=== PATIENT | male | born 1950 | race Caucasian/White ===

== ENCOUNTER 2020-04-25 12:28 | Outpatient (CLI) | payer MEDICARE, SELFPAY ==
--- NOTE | 2020-04-25 15:00 | NEURO_ITS ---
Patient Number: [id number] Impression: # Complains of numbness of both hands, right more than left. # Severe right Carpal Tunnel Syndrome. # Mild left Carpal Tunnel Syndrome. # No ulnar neuropathy. # Abnormal needle/EMG exam in right Abd Poll Brevis. Nerve Conduction Studies Anti Sensory Summary Table Stim Site NR Peak (ms) P-T Amp (?V) Site1 Site2 Delta-P (ms) Dist (cm) Lakhwinder (m/s) Left Median Anti Sensory (2-3nd Digit) Wrist 4.5 23.5 Wrist 2-3nd Digit 4.5 14.0 31 Wrist 4.3 16.8 Wrist 2-3nd Digit 4.5 14.0 31 Right Median Anti Sensory (2-3nd Digit) Wrist 12.1 7.3 Wrist 2-3nd Digit 12.1 14.0 12 Wrist 9.4 13.0 Wrist 2-3nd Digit 12.1 14.0 12 Left Radial Anti Sensory (Base 1st Digit) Wrist 2.4 8.6 Wrist Base 1st Digit 2.4 0.0 Right Radial Anti Sensory (Base 1st Digit) Wrist 3.3 10.9 Wrist Base 1st Digit 3.3 0.0 Left Ulnar Anti Sensory (5th Digit) Wrist 3.1 21.1 Wrist 5th Digit 3.1 14.0 45 Right Ulnar Anti Sensory (5th Digit) Wrist 2.7 30.0 Wrist 5th Digit 2.7 14.0 52 Motor Summary Table Stim Site NR Onset (ms) O-P Amp (mV) Site1 Site2 Delta-0 (ms) Dist (cm) Lakhwinder (m/s) Left Median Motor (Abd Poll Brev) Wrist 4.1 2.8 Elbow Wrist 6.2 34.0 55 Elbow 10.3 1.0 Right Median Motor (Abd Poll Brev) Wrist 10.6 1.1 Elbow Wrist 5.9 31.0 53 Elbow 16.5 0.8 Left Ulnar Motor (Abd Dig Minimi) Wrist 2.7 7.2 A Elbow Wrist 5.6 32.0 57 A Elbow 8.3 5.7 Right Ulnar Motor (Abd Dig Minimi) Wrist 2.9 6.8 A Elbow Wrist 6.1 33.0 54 A Elbow 9.0 5.3 F Wave Studies NR F-Lat (ms) L-R F-Lat (ms) Left Median (Mrkrs) (Abd Poll Brev) 32.16 8.71 Right Median (Mrkrs) (Abd Poll Brev) 40.88 8.71 Left Ulnar (Mrkrs) (Abd Dig Min) 32.03 0.78 Right Ulnar (Mrkrs) (Abd Dig Min) 31.25 0.78 EMG Side Muscle Nerve Root Ins Act Fibs Amp Dur Recrt Comment Right 1stDorInt Ulnar C8-T1 Nml Nml Nml Nml Nml Right Ext Indicis Radial (Post Int) C7-8 Nml Nml Nml Nml Nml Right Ext Digitorum Radial (Post Int) C7-8 Nml Nml Nml Nml Nml Right BrachioRad Radial C5-6 Nml Nml Nml Nml Nml Right PronatorTeres Median C6-7 Nml Nml Nml Nml Nml Right Abd Poll Brev Median C8-T1 Nml Nml Nml >12ms Reduced Left 1stDorInt Ulnar C8-T1 Nml Nml Nml Nml Nml Left Ext Indicis Radial (Post Int) C7-8 Nml Nml Nml Nml Nml Left Ext Digitorum Radial (Post Int) C7-8 Nml Nml Nml Nml Nml Left BrachioRad Radial C5-6 Nml Nml Nml Nml Nml Left PronatorTeres Median C6-7 Nml Nml Nml Nml Nml Left Abd Poll Brev Median C8-T1 Nml Nml Nml Nml Nml MTDD
== END 2020-04-25 12:29 | disposition home or self-care (01) ==
PROVIDERS: PCP Family Medicine; Visit Provider Psychiatry & Neurology Neurology
DX: G56.03 Carpal tunnel syndrome, bilateral upper limbs (principal)
CPT/HCPCS: 95886; 95911

== ENCOUNTER 2020-04-29 01:09 | Outpatient (CLI) | payer MEDICARE, SELFPAY ==
[2020-04-29 19:58] LABS: SARS-CoV-2 RNA PCR Negative
== END 2020-04-29 01:10 | disposition home or self-care (01) ==
LOC: ANHCOVIDDT 01:09
PROVIDERS: PCP Family Medicine; Visit Provider Internal Medicine Gastroenterology
DX: Z01.812 Encounter for preprocedural laboratory examination (principal); Z20.828 Contact with and (suspected) exposure to other viral communicable diseases
CPT/HCPCS: 87635; C9803; U0003

== ENCOUNTER → 2020-04-29 11:03 | Outpatient (CLI) | payer MEDICARE, SELFPAY ==
--- NOTE | ~2020-04-29 | XR_ITS ---
EXAMINATION: XR hand BI arthritis min 3V DATE: 04/29/2020 11:15 INDICATION: Unspecified osteoarthritis, unspecified site. TECHNIQUE: 4 views of right hand and 4 views of left hand on a total of 7 radiographs were obtained. COMPARISON: None. FINDINGS: RIGHT HAND: Bone alignment is normal. No fracture. There is mild osteoarthritis of distal radioulnar joint, triscaphe joint, first carpometacarpal joint, second-fifth metacarpophalangeal joints, first i nterphalangeal joint, third and fourth proximal interphalangeal joints, and third-fifth distal interp halangeal joints. There is severe osteoarthritis of second distal interphalangeal joint. There is a l oose body in the dorsum of the radiocarpal joint. LEFT HAND: Bone alignment is normal. There is an old healed fracture deformity of fifth proximal phal anx. There is mild osteoarthritis of triscaphe joint, first carpometacarpal joint, second, and fourth metacarpophalangeal joints, and most of the interphalangeal joints. There is moderate osteoarthritis of fifth proximal interphalangeal joint. IMPRESSION: 1. Polyarticular osteoarthritis. 2. Loose body in right radiocarpal compartment. Reviewed, dictated and finalized at location A. 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
== END ==
PROVIDERS: PCP Family Medicine; Visit Provider Internal Medicine
DX: M19.041 Primary osteoarthritis, right hand (principal); M19.042 Primary osteoarthritis, left hand
CPT/HCPCS: 73130

== ENCOUNTER 2020-05-01 03:18 | Day surgery (SDC) | payer MEDICARE, SELFPAY ==
[2020-04-26 14:03] VITALS: BMI 29.6
[2020-05-01] MEDS: LACTATED RINGERS 1,000 ML 150 ML IV CONT (11:25)
[2020-05-01 11:30] VITALS: BP 152/85; PULSE 79; RESP 20; TEMP 36.2; O2SAT 98; BMI 30.9
[2020-05-01 11:36] LABS: Glucose Point of Care 140 (65-105)
--- NOTE | 2020-05-01 11:43 | WPDANESEPPF ---
Anes - Initial Pre Proc Eval Procedure: Operation Date: 05/01/20 12:45 Proposed Procedures p Screening Colonoscopy - Tadeo Villavicencio MD Date/Time: 05/01/20 11:43 Surgeon: Tadeo Villavicencio MD Pre Op Diagnosis: Neoplasm Screening Patient Data Age: 69 Gender: M Height: 6 ft 1 in Weight: 106.2 kg Last Vital Signs Temp 36.2 C L 05/01/20 11:30 Pulse 79 05/01/20 11:30 Resp 20 05/01/20 11:30 BP 152/85 H 05/01/20 11:30 Pulse Ox 98 05/01/20 11:30 Allergies Allergy/AdvReac Type Severity Reaction Status Date / Time erythromycin base Allergy Mild Hives Verified 05/01/20 11:18 Penicillins Allergy Mild Hives Verified 05/01/20 11:18 Home Medications Medication Instructions Recorded Confirmed Type coenzyme Q10 100 mg capsule 100 mg PO DAILY 06/22/19 04/26/20 History metformin 500 mg tablet 500 mg PO BID 06/22/19 04/26/20 History naproxen sodium 220 mg tablet 220 mg PO BID PRN 06/22/19 04/26/20 History cholecalciferol (vitamin D3) 1,250 50,000 unit PO WEEKLY #4 cap 12/28/19 04/26/20 Rx mcg (50,000 unit) capsule rosuvastatin 10 mg tablet 10 mg PO DAILY #90 tablet 12/28/19 04/26/20 Rx tadalafil 5 mg tablet 5 mg PO DAILY #90 tablet 03/28/20 04/26/20 Rx tamsulosin 0.4 mg capsule 0.4 mg PO DAILY #90 cap 03/28/20 04/26/20 Rx peg 3350-electrolytes 236 240 ml PO Q10M #4000 ml 04/09/20 04/19/20 Rx gram-22.74 gram-6.74 gram-5.86 gram solution sodium,potassium,mag sulfates 17.5 480 ml PO .COMPLEX #177 ml 04/11/20 04/19/20 Rx gram-3.13 gram-1.6 gram oral soln aspirin 81 mg PO DAILY 04/26/20 04/26/20 History Laboratory Tests 05/01/20 11:33 POC Capillary Glucose 140 mg/dl H mg/dl (65-105) Patient hx anesthesia problems: none Family hx anesthesia problems: none PMFSH Past Medical History Medical History Abnormal EKG Alcohol abuse Carpal tunnel syndrome of right wrist (~10/2019) Diabetes 1.5, managed as type 2 HERNANDEZ (dyspnea on exertion) Dyslipidemia Encounter for Hemoccult screening patient gives history that 1 was positive recently Hypersomnia Inflammatory arthritis (~06/2019) PAC (premature atrial contraction) Preop cardiovascular exam Surgical History Surgical History History of hip replacement History of knee surgery History of shoulder surgery Family History Family History Mother Family history of throat cancer Family history of malignant neoplasm, Onset Age: 84 Father Patient's father is , Onset Age: 69 Family history of lung cancer Acute myocardial infarction Family history of malignant neoplasm Social History Social History Smoking status: Never smoker Second hand tobacco smoke exposure: No Alcohol intake: former Drinks per week: 30 Alcohol use details: BEEN CLEAN AND SOBER FOR A YEAR Substance use: never Substance use type: does not use Living arrangements: with family Spiritual care concerns: No Anes - Eval Final PreProcedure Day of Procedure 05/01/20 11:43 Patient weight: obese Heart: regular rate and rhythm Lungs: decreased breath sounds Airway: Mallampati scale class II Neurological: alert and oriented Last oral intake: >/= 8 hours ASA classification: III Emergent: no Anesthetic plan: proceed Anesthesia type and monitoring: general GIVS and standard monitoring Informed Consent: The patient's anesthetic plan and its attendant risks and benefits were discussed with the patient/family/POA. Questions were solicited and answers provided to the satisfaction of the patient/family/POA.
--- NOTE | 2020-05-01 11:45 | PM.HPGS ---
History of Present Illness History of Present Illness Consent: Risks, benefits, and alternatives have been discussed and questions answered. Patient agrees to proceed with procedure. Chief complaint: Neoplasm Screening Narrative: Benigno Kothari is a 69 year old male with FOBT +, denies overt gib, last colonoscopy 20 years ago Review of Systems Constitutional: Constitutional: Denies headache(s) and Denies weakness Eyes: Eyes: Denies blurry vision ENT: Reports Normal hearing present, Denies headache(s) and Denies neck pain Cardiovascular: Cardiovascular: Denies chest pain and Denies dyspnea Respiratory: Respiratory: Denies dyspnea Gastrointestinal: Gastrointestinal: Reports no additional gastrointestinal complaints Genitourinary: Genitourinary: Denies dysuria Musculoskeletal: Musculoskeletal: Denies neck pain Integumentary/Breasts: Skin/Breast: Denies dry skin Neurologic: Reports Normal hearing present, Denies headache(s) and Denies weakness Psychiatric: Psychiatric: Denies anxiety Endocrine: Endocrine: Denies change in body appearance Hematologic/Lymphatic: Hematologic/Lymphatic: Denies easy bleeding Allergic/Immunologic: Allergic/Immunologic: Denies urticaria PMFSH Past Medical History Medical History Abnormal EKG Alcohol abuse Carpal tunnel syndrome of right wrist (~10/2019) Diabetes 1.5, managed as type 2 HERNANDEZ (dyspnea on exertion) Dyslipidemia Encounter for Hemoccult screening patient gives history that 1 was positive recently Hypersomnia Inflammatory arthritis (~06/2019) PAC (premature atrial contraction) Preop cardiovascular exam Surgical History Surgical History History of hip replacement History of knee surgery History of shoulder surgery Family History Family History Mother Family history of throat cancer Family history of malignant neoplasm, Onset Age: 84 Father Patient's father is , Onset Age: 69 Family history of lung cancer Acute myocardial infarction Family history of malignant neoplasm Social History Social History Smoking status: Never smoker Second hand tobacco smoke exposure: No Alcohol intake: former Drinks per week: 30 Alcohol use details: BEEN CLEAN AND SOBER FOR A YEAR Substance use: never Substance use type: does not use Living arrangements: with family Spiritual care concerns: No Meds Home Medications and Allergies Home Medications Medication Instructions Recorded Confirmed Type coenzyme Q10 100 mg capsule 100 mg PO DAILY 06/22/19 04/26/20 History metformin 500 mg tablet 500 mg PO BID 06/22/19 04/26/20 History naproxen sodium 220 mg tablet 220 mg PO BID PRN 06/22/19 04/26/20 History cholecalciferol (vitamin D3) 1,250 50,000 unit PO WEEKLY #4 cap 12/28/19 04/26/20 Rx mcg (50,000 unit) capsule rosuvastatin 10 mg tablet 10 mg PO DAILY #90 tablet 12/28/19 04/26/20 Rx tadalafil 5 mg tablet 5 mg PO DAILY #90 tablet 03/28/20 04/26/20 Rx tamsulosin 0.4 mg capsule 0.4 mg PO DAILY #90 cap 03/28/20 04/26/20 Rx peg 3350-electrolytes 236 240 ml PO Q10M #4000 ml 04/09/20 04/19/20 Rx gram-22.74 gram-6.74 gram-5.86 gram solution sodium,potassium,mag sulfates 17.5 480 ml PO .COMPLEX #177 ml 04/11/20 04/19/20 Rx gram-3.13 gram-1.6 gram oral soln aspirin 81 mg PO DAILY 04/26/20 04/26/20 History Allergies Allergy/AdvReac Type Severity Reaction Status Date / Time erythromycin base Allergy Mild Hives Verified 05/01/20 11:18 Penicillins Allergy Mild Hives Verified 05/01/20 11:18 Vital Signs Vital Signs - 24 hr 05/01/20 11:30 Temperature 97.2 F L Pulse Rate 79 Respiratory Rate 20 Blood Pressure 152/85 H Pulse Oximetry 98 Exam Const: General: comfortable and no acute d
[2020-05-01 12:13] VITALS: BP 111/72; PULSE 67; RESP 16; O2SAT 92
[2020-05-01 12:23] VITALS: BP 117/79; PULSE 63; RESP 15; O2SAT 94
[2020-05-01 12:33] VITALS: BP 126/82; PULSE 65; RESP 30; O2SAT 96
== END 2020-05-01 12:41 | disposition home or self-care (01) ==
PROVIDERS: PCP Family Medicine; Visit Provider Internal Medicine Gastroenterology
PROC: 0DJD8ZZ Inspection of Lower Intestinal Tract, Via Natural or Artificial Opening Endoscopic (ICD-10-PCS; CPT 45378; principal; 2020-05-01 12:45)
DX: R19.5 Other fecal abnormalities (principal); D12.2 Benign neoplasm of ascending colon; D12.3 Benign neoplasm of transverse colon; D12.4 Benign neoplasm of descending colon; K57.30 Diverticulosis of large intestine without perforation or abscess without bleeding; K64.8 Other hemorrhoids; E13.9 Other specified diabetes mellitus without complications; E78.5 Hyperlipidemia, unspecified; I49.1 Atrial premature depolarization; R06.09 Other forms of dyspnea; Z79.84 Long term (current) use of oral hypoglycemic drugs; F10.21 Alcohol dependence, in remission; E66.9 Obesity, unspecified; Z68.30 Body mass index [BMI] 30.0-30.9, adult
CPT/HCPCS: 45385; 88305; J2704; J7120

== ENCOUNTER 2020-06-15 01:54 | Outpatient (CLI) | payer MEDICARE, SELFPAY ==
[2020-06-15 18:59] LABS: SARS-CoV-2 RNA PCR Negative
== END 2020-06-15 01:55 | disposition home or self-care (01) ==
LOC: ANHCOVIDDT 01:54
PROVIDERS: PCP Family Medicine; Visit Provider Plastic Surgery
DX: Z01.812 Encounter for preprocedural laboratory examination (principal); Z20.828 Contact with and (suspected) exposure to other viral communicable diseases
CPT/HCPCS: 87635; C9803; U0003

== ENCOUNTER 2020-06-19 01:07 | Day surgery (SDC) | payer MEDICARE, SELFPAY ==
[2020-05-30 08:12] VITALS: BMI 31.0
--- NOTE | 2020-06-14 08:30 | PC.NURSE ---
NEW DATE AND TIME GIVEN. NO CHANGE IN HEALTH HX. LAST INTERVIEW 05/30/20
--- NOTE | 2020-06-19 07:12 | WPDHPUPDATE1 ---
History and Physical Update Update Date/Time: 06/19/20 07:12 History and Physical has been reviewed, including an updated exam of the patient. There are NO changes in the patient's condition. Risks, benefits, and alternatives have been discussed and questions answered. Patient agrees to proceed with procedure.
[2020-06-19 15:16] VITALS: BP 125/72; PULSE 85; RESP 20; TEMP 37.2; O2SAT 98
[2020-06-19 16:15] VITALS: BP 142/82; PULSE 87; RESP 20; O2SAT 95
[2020-06-19] MEDS: LIDO 1%/EPINEPHRINE 1:100,000 20 ML VIAL INFILTRATE (16:18)
[2020-06-19 16:25] VITALS: BP 142/81; PULSE 77; RESP 20; O2SAT 95
[2020-06-19 16:34] VITALS: BP 135/74; PULSE 77; RESP 20; O2SAT 96
[2020-06-19 16:40] VITALS: BP 126/73; PULSE 78; RESP 16; O2SAT 98
--- NOTE | 2020-06-19 16:56 | PM.OP ---
Procedure Note - Brief Procedure Note - Brief Date of procedure: 06/19/20 Pre-op diagnosis: Right Carpal Tunnel Syndrome Post-op diagnosis: same Procedure performed: R OCTR Anesthesia: local Surgeon: Jose Hart MD Estimated blood loss (mL): 5 Tourniquet time (min): 0 Drains: No Packing: No Pathology: none sent Complications: No immediate complications Condition: stable Disposition: same day
--- NOTE | 2020-06-19 17:26 | PM.PROC ---
Procedure Note - Detailed Date of procedure: 06/19/20 Pre-op diagnosis: Right Carpal Tunnel Syndrome Post-op diagnosis: same Procedure performed: Right open carpal tunnel release Description of procedure: The patient's right upper extremity was marked at the wrist in the holding area. He was taken to the operating room placed supine on the operating table. A time-out was held and confirmed. The extremity was prepped and draped in usual fashion. The site was marked for incision. This area was infiltrated with 1% lidocaine with epinephrine. No tourniquet was used. The incision was made as marked and dissected through the subcutaneous tissue with blunt dissection. The palmar fascia and carpal ligament were incised with a 15. Blade. Under 3 point retraction the ligament was divided distally and proximally for complete release. There was no unusual anatomy noted. The wound was closed with interrupted 4-0 nylon suture. The usual bandage was applied is discharged from the operating room stable condition in stable condition Anesthesia: local Surgeon: Jose Hart MD Estimated blood loss (mL): 4 Tourniquet time (min): 0 Drains: No Packing: No Pathology: none sent Complications: No immediate complications Condition: stable Disposition: same day
== END 2020-06-19 17:04 | disposition home or self-care (01) ==
PROVIDERS: PCP Family Medicine; Visit Provider Plastic Surgery
PROC: (CPT 64721; principal; 2020-06-19 15:30)
DX: G56.01 Carpal tunnel syndrome, right upper limb (principal); Z79.82 Long term (current) use of aspirin; Z79.84 Long term (current) use of oral hypoglycemic drugs
CPT/HCPCS: 64721; A9270

== ENCOUNTER 2021-01-15 10:59 | Outpatient (CLI) | payer MEDICARE, SELFPAY ==
--- NOTE | 2021-01-15 11:30 | ECG_ITS ---
Measurements Intervals [place] Rate: 67 P: 11 IN: 180 QRS: 78 QRSD: 117 T: 29 QT: 413 QTc: 438 Interpretive Statements SINUS RHYTHM INCOMPLETE RIGHT BUNDLE BRANCH BLOCK DELAYED PRECORDIAL R/S TRANSITION BORDERLINE T WAVE ABNORMALITY- INFERIOR LEADS BORDERLINE ECG Electronically Signed On 01-15-2021 11:41:33 CDT by Les Stapleton D.O.
[2021-01-15 11:38] LABS: Anion Gap 8 mmol/L (8-16); Blood Urea Nitrogen 14 mg/dL (9-20); Carbon Dioxide 26 mmol/L (22-30); Chloride 104 mmol/L (98-107); Estimated Glomerular Filt Rate > 60; Glucose 202 mg/dL (65-110); Potassium 4.3 mmol/L (3.4-5.0); Sodium 138 mmol/L (137-145)
== END 2021-01-15 11:00 | disposition home or self-care (01) ==
LOC: ANHSURGERY 11:05
PROVIDERS: Anesthesiology; PCP Family Medicine; Visit Provider Orthopaedic Surgery
DX: Z01.818 Encounter for other preprocedural examination (principal); I48.20 Chronic atrial fibrillation, unspecified; E11.9 Type 2 diabetes mellitus without complications; I45.10 Unspecified right bundle-branch block
CPT/HCPCS: 36415; 80048; 93005

== ENCOUNTER 2021-01-17 00:55 | Day surgery (SDC) | payer MEDICARE, SELFPAY ==
[2021-01-14 10:30] VITALS: BMI 30.9
--- NOTE | 2021-01-17 13:13 | WPDANESEPPF ---
Anes - Initial Pre Proc Eval Procedure: Operation Date: 01/17/21 15:00 Proposed Procedures p Left Carpal Tunnel Release - Jeff Thomas MD Date/Time: 01/17/21 13:13 Surgeon: Jeff Thomas MD Pre Op Diagnosis: Left Carpal Tunnel Syndrome Patient Data Age: 70 Gender: M Height: 1.85 m Weight: 106.59 kg Allergies Allergy/AdvReac Type Severity Reaction Status Date / Time erythromycin base Allergy Severe Hives Verified 01/17/21 13:55 Penicillins Allergy Severe Hives Verified 01/17/21 13:55 Home Medications Medication Instructions Recorded Confirmed Type coenzyme Q10 100 mg capsule 100 mg PO DAILY 06/22/19 01/14/21 History naproxen sodium 220 mg tablet 220 mg PO BID PRN 06/22/19 01/14/21 History aspirin 81 mg PO DAILY 04/26/20 01/17/21 History metformin 500 mg tablet 500 mg PO BID #180 tablet 10/15/20 01/14/21 Rx cholecalciferol (vitamin D3) 1,250 50,000 unit PO WEEKLY #4 cap 11/27/20 01/14/21 Rx mcg (50,000 unit) capsule tadalafil 5 mg tablet 5 mg PO DAILY #90 tablet 12/25/20 01/14/21 Rx rosuvastatin 10 mg tablet 10 mg PO DAILY #90 tablet 12/26/20 01/14/21 Rx blood sugar diagnostic #100 ea 01/08/21 Rx tamsulosin 0.4 mg PO DAILY 01/14/21 01/14/21 History Patient hx anesthesia problems: none Family hx anesthesia problems: none [facility] Past Medical History Medical History (Updated 01/16/21 @ 14:28 by Shashi Og DO) Abnormal EKG Alcohol abuse Atrial fibrillation Carpal tunnel syndrome of right wrist (~10/2019) Cervical fusion 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, managed as type 2 HERNANDEZ (dyspnea on exertion) Dyslipidemia Encounter for Hemoccult screening patient gives history that 1 was positive recently Hypersomnia Inflammatory arthritis (~06/2019) Occult blood in stools PAC (premature atrial contraction) Preop cardiovascular exam Surgical History Surgical History History of carpal tunnel release History of hip replacement History of knee surgery History of shoulder surgery Family History Family History Mother Family history of throat cancer Family history of malignant neoplasm, Onset Age: 84 Father Patient's father is , Onset Age: 69 Family history of lung cancer Acute myocardial infarction Family history of malignant neoplasm Social History Social History Smoking status: Never smoker Second hand tobacco smoke exposure: No Alcohol intake: former Drinks per week: 30 Alcohol use details: STATES SOBER >1YR Substance use: never Substance use type: does not use Living arrangements: with family Spiritual care concerns: No Anes - Eval Final PreProcedure Day of Procedure 01/17/21 13:13 Patient weight: obese Heart: regular rate and rhythm Lungs: clear to auscultation and normal air movement Airway: Mallampati scale class III and special considerations poor dentition Neurological: alert and oriented Last oral intake: >/= 8 hours ASA classification: III Emergent: no Anesthetic plan: proceed Anesthesia type and monitoring: general LMA and standard monitoring Informed Consent: The patient's anesthetic plan and its attendant risks and benefits were discussed with the patient/family/POA. Questions were solicited and answers provided to the satisfaction of the patient/family/POA.
--- NOTE | 2021-01-17 13:25 | WPDHPUPDATE1 ---
History and Physical Update Update Date/Time: 01/17/21 13:25 History and Physical has been reviewed, including an updated exam of the patient. There are NO changes in the patient's condition. Risks, benefits, and alternatives have been discussed and questions answered. Patient agrees to proceed with procedure.
[2021-01-17] MEDS: KETOROLAC 15 MG/ML VIAL (*BKC) IV PUSH (13:45)
[2021-01-17] MEDS: ACETAMINOPHEN 500 MG TABLET 1000 MG PO (13:45)
[2021-01-17] MEDS: LACTATED RINGERS 1,000 ML 30 ML IV CONT (13:45)
[2021-01-17 13:52] LABS: Glucose Point of Care 126 mg/dl (65-105)
[2021-01-17 13:57] VITALS: BP 151/79; PULSE 72; RESP 14; TEMP 37.3; O2SAT 93
[2021-01-17 15:22] VITALS: BP 148/73; PULSE 68; RESP 12; O2SAT 96
[2021-01-17 15:32] LABS: Glucose Point of Care 132 mg/dl (65-105)
[2021-01-17 15:55] VITALS: BP 145/76; PULSE 67; RESP 14
--- NOTE | 2021-01-17 16:10 | W.PM.PROC2 ---
Procedure Note - Detailed Date of Procedure 01/17/21 Pre-op Diagnosis Left Carpal Tunnel Syndrome Post-op Diagnosis same Procedure Performed Left Carpal tunnel release Surgeon Jeff Thomas MD Video Surveillance Technician Ginger Puga PA-C Anesthesia general Description of Procedure Operative details. After sedation was administer, the hand was prepped and draped in the usual sterile fashion. The proposed incision was marked using typical anatomic landmarks. 3ML 0.5% Marcaine with epinephrine was injected along the incision line and at the distal forearm. The limb was exsanguinated and the tourniquet inflated to 250 millimeters of mercury. A longitudinal incision was taken sharply. Dissection was brought down to the transverse carpal ligament. Under direct vision the ligament was incised sharply. The proximal release was carried out with dissection scissors. The contents of the carpal canal were protected with a [place]as elevator. The transverse carpal ligament was confirmed to be widely patent. Estimated Blood Loss 1 Tourniquet Time 3 Pathology none sent Complications No immediate complications Condition stable Disposition PACU
[2021-01-17 16:15] VITALS: BP 160/87; PULSE 64; RESP 14
== END 2021-01-17 16:20 | disposition home or self-care (01) ==
PROVIDERS: PCP Family Medicine; Visit Provider Orthopaedic Surgery
PROC: (CPT 64721; principal; 2021-01-17 15:00)
DX: G56.02 Carpal tunnel syndrome, left upper limb (principal); M19.032 Primary osteoarthritis, left wrist; M65.842 Other synovitis and tenosynovitis, left hand; G47.10 Hypersomnia, unspecified; E78.5 Hyperlipidemia, unspecified; E13.9 Other specified diabetes mellitus without complications; R06.02 Shortness of breath; I49.1 Atrial premature depolarization; Z87.891 Personal history of nicotine dependence; Z79.82 Long term (current) use of aspirin; Z79.84 Long term (current) use of oral hypoglycemic drugs; F10.10 Alcohol abuse, uncomplicated; E66.9 Obesity, unspecified; Z68.30 Body mass index [BMI] 30.0-30.9, adult
CPT/HCPCS: 64721; 36415; 80048; 82948; 93005; A9270; J1885; J2704; J3010; J7120

== ENCOUNTER 2021-03-25 09:23 | Outpatient (CLI) | payer MEDICARE, SELFPAY ==
--- NOTE | ~2021-03-25 | MR_ITS ---
EXAMINATION: MR lumbar spine wo con EXAM DATE: 03/25/2021 10:14 INDICATION: M79.604 - Pain in right leg. Low back pain. TECHNIQUE: Multi-sequential, multiplanar MR images of the lumbar spine were obtained without contrast . Sagittal T1, T2, T2 fat saturation images. Axial T2 weighted images. There is no prior study for comparison. FINDINGS: Congenitally narrow lumbar spinal canal. The conus medullaris terminates at the T12-L1 leve l and has normal signal intensity and morphology. There are scattered focal signal abnormalities con sistent with hemangiomata, otherwise without focal suspicious marrow signal abnormalities. There is m oderate disc disease L4-5 and L5-S1. Vertebral body heights relatively well-maintained. Paraspinal so ft tissue is unremarkable. There is 4 mm retrolisthesis L5 on S1. Level by level evaluation: T12-L1: Disc does not extend beyond the endplate margin. Facet arthropathy: Mild. Neural foraminal stenosis: No stenosis. Central canal stenosis: No stenosis. L1-L2: There is a moderate diffuse disc bulge. Facet arthropathy: Moderate to severe. Ligamentum flavum enlargement. Neural foraminal stenosis: Mild to moderate bilateral. Central canal stenosis: Moderate to severe. L2-L3: There is a moderate diffuse disc bulge. Facet arthropathy: Severe. Ligamentum flavum enlargement. Neural foraminal stenosis: Mild to moderate left, mild right. Central canal stenosis: Moderate to severe. L3-L4: There is a large diffuse disc bulge. Facet arthropathy: Moderate. Neural foraminal stenosis: Mild to moderate bilateral. Central canal stenosis: Severe. L4-L5: There is a moderate diffuse disc bulge. Facet arthropathy: Moderate. Neural foraminal stenosis: Moderate right, mild to moderate left. Central canal stenosis: Mild to moderate. Possible prior laminotomy. L5-S1: There is a moderate diffuse disc bulge. Facet arthropathy: Moderate. Neural foraminal stenosis: Mild to moderate bilateral. Central canal stenosis: Mild to moderate. IMPRESSION: 1. Congenitally narrow lumbar spinal canal with superimposed spondylosis, central canal stenosis mos t narrowed at L3-4. Reviewed, dictated and finalized at location A. IMPRESSION: 1. Congenitally narrow lumbar spinal canal with superimposed spondylosis, cent ral canal stenosis most narrowed at L3-4.
== END 2021-03-25 09:24 | disposition home or self-care (01) ==
LOC: ANHIMG 09:29
PROVIDERS: PCP Family Medicine; Visit Provider Family Medicine
DX: M47.817 Spondylosis without myelopathy or radiculopathy, lumbosacral region (principal); G47.10 Hypersomnia, unspecified; M48.07 Spinal stenosis, lumbosacral region; M47.815 Spondylosis without myelopathy or radiculopathy, thoracolumbar region; M48.05 Spinal stenosis, thoracolumbar region; M79.604 Pain in right leg; M79.605 Pain in left leg
CPT/HCPCS: 72148

== ENCOUNTER 2025-03-05 02:29 | Day surgery (SDC) | payer MEDICARE, SELFPAY ==
[2025-02-20 13:33] VITALS: BMI 30.1
--- OUTSIDE RECORDS SUMMARY | 2025-03-05 02:31 | XMS_ITS | Clinical Summary ---
Author Organization [facility] [place] Address [address] [place] [address] Phone Care Team Providers Care Training Lead Name Role Phone Tez Foley MD Primary Care Provider [phone] Allergies Active Allergy Reactions Criticality Noted Date Comments Erythromycin Lactobionate Unknown 04/28/2002 Lisinopril Other (see Comments) High 06/12/2024 cough Penicillins 04/28/2002 Medications metFORMIN (GLUCOPHAGE) 1000 MG Tablet Take 1 Tablet by mouth 2 times daily (with meals). 60 Tablet 10/09/2024 Active losartan (COZAAR) 25 MG Tablet Take 1 Tablet by mouth daily. 30 Tablet 10/10/2024 Active Active Problems Problem Noted Date Diagnosed Date Aortic root dilation 10/09/2024 Type 2 diabetes mellitus, wi thout long-term current use of insulin 06/10/2024 Cellulitis of chest wall 06/09/2024 Abscess of axilla, left, MRSA 06/09/2024 Hyperglycemia 06/09/2024 Resolved Problems Problem Noted Date Diagnosed Date Resolved Date Chest pain 10/09/2024 10/09/2024 Immunizations Immunization Administration Dates Next Due Influenza, Trivalent, Adjuvanted, PF 06/10/2024( ) Social History Tobacco Use Types Packs/Day Years Used Date Smoking Tobacco: Never Smokeless Tobacco: Never [facility] Utilities Answer Date Recorded In the past 12 months has th e [employer], gas, oil, or water [employer] threatened to shut off services in your home? No 10/09/2024 Social Connection and Isolation Panel Answer Date Recorded In a typical week, how many times do you talk on the phone with family, friends, or neighbors? More than three times a week 10/09/2024 How often do you get togethe r with friends or relatives? More than three times a week 10/09/2024 How often do you attend chur ch or pentecostal services? More than 4 times per year 10/09/2024 Do you belong to any clubs o r organizations such as yazidism groups, unions, fraternal or athletic groups, or school groups? No 10/09/2024 How often do you attend meet ings of the clubs or organizations you belong to? Never 10/09/2024 Are you , , di vorced, , never , or living with a partner? 10/09/2024 AUDIT-C Answer Date Recorded Q1: How often do you have a drink containing alcohol? Never 10/09/2024 Q2: How many drinks containi ng alcohol do you have on a typical day when you are drinking? Patient does not drink Q3: How often do you have si x or more drinks on one occasion? Never 10/09/2024 Overall Financial Resource Strain (CARDIA) Answe r Date Recorded How hard is it for you to pa y for the very basics like food, housing, medical care, and heating? Not hard at all 10/09/2024 [facility] - Occupational Stress Questionnaire Answer Date Recorded Do you feel stress - tense, restless, nervous, or anxious, or unable to sleep at night because your mind is troubled all the time - these days? Only a little 10/09/2024 Exercise Vital Sign Answer Date Recorde d On average, how many days pe r week do you engage in moderate to strenuous exercise (like a brisk walk)? 4 days 10/09/2024 On average, how many minutes do you engage in exercise at this level? 60 min 10/09/2024 Hunger Vital Sign Answer Date Recorded Within the past 12 months, y ou worried that your food would run out before you got the money to buy more. Never true 10/10/19 25 Within the past 12 months, t he food you bought just didn't last and you didn't have money to get more. Never true 10/09/2024 PRAPARE - Transportation Answer Date Re corded In the past 12 months, has l ack of transportation kept you from medical appointments or from getting medications? No 09/26 In the past 12 months, has l ack of transportation kept you from meetings, work, or from getting things needed for daily living? No 10/09/2024 Housing Stability Vital Sign Answer Roger e Recorded In the last 12 months, was t here a time when you were not able to pay the mortgage or rent on time? Yes 10/09/2024 In the past 12 months, how m any times have you moved where you were living? 0 10/09/2024 At any time in the past [address] [facility], were you homeless or living in a penitentiary (including now)? 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 Sexual Orientation Not on file Last Filed Vital Signs Vital Sign Reading Time Taken Comments Blood Pressure 162/83 10/09/2024 3:27 PM CDT Pulse 77 10/09/2024 3:27 PM CDT Temperature 36.7 C (98.1 F) 10/09/2024 3:27 PM CDT Respiratory Rate 20 10/09/2024 3:27 PM CDT Oxygen Saturation 97% 10/09/2024 3:27 PM CDT Inhaled Oxygen Concentration - - Weight 106.6 kg (235 lb) 10/08/2024 10:26 PM CDT Height 185.4 cm (6' 1) 10/08/2024 10:26 PM CDT Body Mass Index 31 10/08/2024 10:26 PM CDT Plan of Treatment Health Maintenance Due Date Last Done Comments Diabetes: Eye Exam 1950 Diabetes: Foot Exam 1950 Hepatitis C Virus (HCV) Screening 1950 Cologuard 1994 Colonoscopy 1994 Colorectal Cancer Screening 1994 Immunochemical Fecal Occult Blood 1994 Zoster Immunization (1 of 2) 1999 Pneumococcal Immunization (50+ years) (2 of 2 - PCV) 03/26/2021 03/26/2020 Respiratory Syncytial Virus (RSV) Immunization (Adult) (1 - 1-dose 75+ series) 2024 Influenza Immunization (#1) 2025 06/11/2021, 0 03/19/2020 SARS-COV-2 Immunization ( - season) 2025 04/21/2023, 05/29/2021, 10/17/2020, Additional history exists Diabetes: Hemoglobin A1c 05/29/2025 025, 10/08/2024, 06/09/2024 Diabetes: Nephropathy Screening 11/27/2025 11/27/2024, 11/27/2024, 10/08/2024, Additional history exists Hepatitis B Immunization Completed 015, 08/10/2014, 06/11/2014 TdaP Immunization Completed 01/14/2015 Human Papillomavirus (HPV) Immunization Aged Out No longer eligible based on patient's age to complete this topic Meningococcal Immunization (ACWY) Aged Out No longer eligible based on patient's age to complete this topic Rotavirus Immunization Aged Out No lo nger eligible based on patient's age to complete this topic Procedures Procedure Name Priority Date/Time Associated Diagnosis Comments UR MICROALBUMIN/CREATI NINE RATIO RANDOM Routine 11/27/2024 9:16 AM CDT 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 Alcohol abuse, uncomplicated Type 2 diabetes mellitus without complication, without long-term current use of insulin Obesity, unspecified class, unspecified obesity type, unspecified whether serious comorbidity present Other specified abnormal findings of blood chemistry Benign prostatic hyperplasia without lower urinary tract symptoms Osteoarthritis, unspecified osteoarthritis type, unspecified site Encounter for general adult medical examination w/o abnormal findings HEMOGLOBIN A1C W/ ESTIMATED GLUCOSE Routine 11/27/2024 9:16 AM CDT 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 Alcohol abuse, uncomplicated Type 2 diabetes mellitus without complication, without long-term current use of insulin Obesity, unspecified class, unspecified obesity type, unspecified whether serious comorbidity present Other specified abnormal findings of blood chemistry Benign prostatic hyperplasia without lower urinary tract symptoms Osteoarthritis, unspecified osteoarthritis type, unspecified site Encounter for general adult medical examination w/o abnormal findings from Last 3 Months or Most Recently Relevant to Health Maintenance Results * (ABNORMAL) HEMOGLOBIN A1C W/ ESTIMATED GLUCOSE (11/27/2024 9:16 AM CDT) HGB-A1C 7.4(H) 4.0 - 6.0 % 11/27/2024 5:45 PM CDT [facility] Est Average Glucose 165.7 mg/dL 11/27/2024 5:45 PM CDT [facility] Blood Venipuncture / Unknown 11/27/2024 9:16 AM CDT 11/27/2024 9:26 AM CDT Narrative [facility] - 11/27/2024 5:45 PM CDT Specimens containing greater than 5% of Hemoglobin F may result in lower than expected % HbA1c results. us Tez Foley MD CHEMISTRY ORDERABLES Final Resu lt Performing Organization Address [facility] de Phone Number [facility] [address] [place] [address], [place] * UR MICROALBUMIN/CREATININE RATIO RANDOM (11/27/2024 9:16 AM CDT) Pathologist [facility] RAN UR MICROALBUMIN 1.30 mg/dL 11/27/2024 5:31 PM CDT [facility] Comment:No reference range h as been established. Consider Clinical Correlation. CREATININE URINE 80.0 mg/dL 11/28/19 25 5:31 PM CDT [facility] Comment:No reference range h as been established. Consider Clinical Correlation. ALB/CREAT RATIO 16 0 - 30 mg/g CRE 11/27/2024 5:31 PM CDT [facility] Urine Non-Phlebotomy Collection / Unknown 11/27/2024 9:16 AM CDT 11/27/2024 9:26 AM CDT us Tez Foley MD URINE ORDERABLES Final Result Performing Organization Address [facility] Co de Phone Number [facility] [address] [place] [address], [place] from Last 3 Months or Most Recently Relevant to Health Maintenance Additional Health Concerns Infection Onset Date Last Indicated MRSA 06/09/2024 06/09/2024 Insurance MEDICARE C [employer] Advance Directives Documents on File Type Date Recorded 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 PRE-ARREST: Use entire range of life support measures to stabilize the patient. * Full Code Date Activated Date Inactivated Comments 06/09/2024 3:57 PM 10/09/2024 4:44 AM CPR-Full Tr eatment: FULL ARREST: Attempt Resuscitation/CPR wit intubation and mechanical ventilation. PRE-ARREST: Use entire range of life support measures to stabilize the patient. Care Teams Training Lead Relationship Specialty Start Date End Date Tez Foley MD PCP - General Family Medicine 06/10/24
[2025-03-05 09:08] VITALS: BP 147/81; PULSE 83; RESP 18; TEMP 36.1; O2SAT 99; BMI 30.4
[2025-03-05] MEDS: LACTATED RINGERS 1,000 ML 150 ML IV CONT (09:18)
--- NOTE | 2025-03-05 09:36 | WPDANESEPPF ---
Anes - Initial Pre Proc Eval Procedure: Operation Date: 03/05/25 10:30 Proposed Procedures p Screening Colonoscopy - Tadeo Villavicencio MD Date/Time: 03/05/25 09:36 Surgeon: Tadeo Villavicencio MD Pre Op Diagnosis: Encounter for screening for malignant neoplasm of Patient Data Age: 74 Gender: M Height: 1.85 m Weight: 104.8 kg Last Vital Signs Temp 36.1 C L 03/05/25 09:08 Pulse 83 03/05/25 09:08 Resp 18 03/05/25 09:08 BP 147/81 H 03/05/25 09:08 Pulse Ox 99 03/05/25 09:08 O2 Del Method Room Air 03/05/25 09:08 Allergies Allergy/AdvReac Type Severity Reaction Status Date / Time erythromycin base Allergy Severe Hives Verified 03/05/25 09:07 Penicillins Allergy Severe Hives Verified 03/05/25 09:07 Home Medications ?Medication ?Instructions ?Recorded ?Confirmed ?Type blood sugar diagnostic (OneTouch #100 ea 04/15/21 Rx Verio test strips) lancets 33 gauge (TRUEplus Lancets) #100 ea 04/15/21 Rx empagliflozin 10 mg tablet 10 mg PO QAM #90 tabs 11/13/24 03/05/25 Rx (Jardiance) losartan 25 mg tablet 25 mg PO DAILY #90 tabs 11/13/24 03/05/25 Rx metformin 500 mg tablet 500 mg PO BID #180 tabs 11/13/24 03/05/25 Rx dulaglutide 0.75 mg/0.5 mL 0.75 mg (0.5 mL) subcut WEEKLY #6 02/13/25 03/05/25 Rx subcutaneous pen injector mL (Trulicity) Laboratory Tests 03/05/25 09:13 POC Capillary Glucose 139 H mg/dl (65-105) Patient hx anesthesia problems: none Family hx anesthesia problems: none Results Review: All pre-operative results and documents have been reviewed as part of the pre-operative evaluation. 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 Low vitamin D level Folliculitis Elevated cholesterol Multiple fractures of ribs, left side, initial encounter for closed fracture Bilirubinemia Cervical fusion syndrome Atrial fibrillation Occult blood in stools Carpal tunnel syndrome of right wrist (~10/2019) Inflammatory arthritis (~06/2019) Encounter for Hemoccult screening patient gives history that 1 was positive recently Abnormal EKG Alcohol abuse HERNANDEZ (dyspnea on exertion) Diabetes 1.5, managed as type 2 Dyslipidemia Hypersomnia PAC (premature atrial contraction) Preop cardiovascular exam Surgical History Surgical History (Updated 02/15/25 @ 08:12 by Faustina Figueredo) Presence of left artificial hip joint History of carpal tunnel release (~01/17/21) left History of hip replacement History of shoulder surgery History of knee surgery Family History Family History Mother Family history of throat cancer Family history of malignant neoplasm, Onset Age: 84 Father Patient's father is , Onset Age: 69 Family history of lung cancer Acute myocardial infarction Family history of malignant neoplasm Social History Social History Smoking status: Never smoker Second hand tobacco smoke exposure: No Alcohol intake: former Drinks per week: 30 Alcohol use details: STATES SOBER >1YR Substance use: never Substance use type: does not use Living arrangements: with family Spiritual care concerns: No Anes - Eval Final PreProcedure Day of Procedure 03/05/25 09:36 Patient weight: obese Heart: regular rate and rhythm Lungs: clear to auscultation Airway: Mallampati scale class II and special considerations poor dentition Neurological: alert and oriented Last oral intake: >/= 8 hours ASA classification: III Emergent: no Anesthetic plan: proceed Anesthesia type and monitoring: general GIVS and standard monitoring Results Review: All pre-operative results and documents have been reviewed as part of the pre-operative evaluation. Informed Consent: The patient's anesthetic plan and its attendant risks and benefits were discussed with the patient/family/POA. Questions were solicited and answers provided to the satisfaction of the patient/family/POA.
--- NOTE | 2025-03-05 10:05 | PM.HPGS ---
History of Present Illness History of Present Illness Consent: Risks, benefits, and alternatives have been discussed and questions answered. Patient agrees to proceed with procedure. 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 Low vitamin D level Folliculitis Elevated cholesterol Multiple fractures of ribs, left side, initial encounter for closed fracture Bilirubinemia Cervical fusion syndrome Atrial fibrillation Occult blood in stools Carpal tunnel syndrome of right wrist (~10/2019) Inflammatory arthritis (~06/2019) Encounter for Hemoccult screening patient gives history that 1 was positive recently Abnormal EKG Alcohol abuse HERNANDEZ (dyspnea on exertion) Diabetes 1.5, managed as type 2 Dyslipidemia Hypersomnia PAC (premature atrial contraction) Preop cardiovascular exam Surgical History Surgical History (Updated 02/15/25 @ 08:12 by Faustina Figueredo) Presence of left artificial hip joint History of carpal tunnel release (~01/17/21) left History of hip replacement History of shoulder surgery History of knee surgery Family History Family History Mother Family history of throat cancer Family history of malignant neoplasm, Onset Age: 84 Father Patient's father is , Onset Age: 69 Family history of lung cancer Acute myocardial infarction Family history of malignant neoplasm Social History Social History Smoking status: Never smoker Second hand tobacco smoke exposure: No Alcohol intake: former Drinks per week: 30 Alcohol use details: STATES SOBER >1YR Substance use: never Substance use type: does not use Living arrangements: with family Spiritual care concerns: No Meds Home Medications and Allergies Home Medications ?Medication ?Instructions ?Recorded ?Confirmed ?Type blood sugar diagnostic (OneTouch #100 ea 04/15/21 Rx Verio test strips) lancets 33 gauge (TRUEplus Lancets) #100 ea 04/15/21 Rx empagliflozin 10 mg tablet 10 mg PO QAM #90 tabs 11/13/24 03/05/25 Rx (Jardiance) losartan 25 mg tablet 25 mg PO DAILY #90 tabs 11/13/24 03/05/25 Rx metformin 500 mg tablet 500 mg PO BID #180 tabs 11/13/24 03/05/25 Rx dulaglutide 0.75 mg/0.5 mL 0.75 mg (0.5 mL) subcut WEEKLY #6 02/13/25 03/05/25 Rx subcutaneous pen injector mL (Trulicity) Allergies Allergy/AdvReac Type Severity Reaction Status Date / Time erythromycin base Allergy Severe Hives Verified 03/05/25 09:07 Penicillins Allergy Severe Hives Verified 03/05/25 09:07 Vital Signs Vital Signs - 24 hr 03/05/25 09:08 Temperature 97.0 F L Pulse Rate 83 Respiratory Rate 18 Blood Pressure 147/81 H Pulse Oximetry 99 Oxygen Delivery Room Air Exam Const: General: comfortable and no acute distress HENMT: Face/Nose/Sinus: Normal nares present Eyes: General: appearance normal, both eyes and all related structures Neck: Neck: no JVD Resp: Auscultation: clear to auscultation bilaterally Cardio: Rate: regular rate Rhythm: regular rhythm GI: Inspection: non-distended GI Palp: Yes Soft to palpation Skin: General skin exam: normal color Neuro: Speech: normal speech Extrem: General: normal to inspection Psych: Mental Status: mental status grossly normal Assessment and Plan Assessment and plan (1) Colon cancer screening: Code(s): Z12.11 - Encounter for screening for malignant neoplasm of colon Status: Acute Assessment and Plan: colonoscopy
--- NOTE | 2025-03-05 10:20 | S_PTH ---
PATIENT: Benigno Kothari LOC: [facility] David#:[id number] AGE/SX: 74/M ROOM: RE03/05/[address]: Tadeo Villavicencio MD : 1950 BED: DIS: 03/05/2025 SPEC #: [id number] RECD: 03/05/25 10:44 STATUS: RODNEY REPatricia #: [id number] JACKI: 03/05/25 10:[address]: Tadeo Villavicencio DEPT: [facility] Surgical RECD BY: Erwin Claire ENTERED: 03/05/25 10:44 SP TYPE: Surgical OTHR DR: Tez Foley MD Tissues: A - Colon Polypectomy Procedures: Hematoxylin and Eosin Stain Gross and Microscopic Level 4
[2025-03-05 10:29] VITALS: BP 108/74; PULSE 71; RESP 18; O2SAT 98
[2025-03-05 10:39] VITALS: BP 125/79; PULSE 75; RESP 19; O2SAT 97
[2025-03-05 10:49] VITALS: BP 130/71; PULSE 70; RESP 20; O2SAT 99
== END 2025-03-05 10:55 | disposition home or self-care (01) ==
PROVIDERS: PCP Family Medicine; Referring Provider Family Medicine; Visit Provider Internal Medicine Gastroenterology
PROC: 0DJD8ZZ Inspection of Lower Intestinal Tract, Via Natural or Artificial Opening Endoscopic (ICD-10-PCS; CPT 45378; principal; 2025-03-05 10:30)
DX: Z12.11 Encounter for screening for malignant neoplasm of colon (principal); D12.3 Benign neoplasm of transverse colon; K57.30 Diverticulosis of large intestine without perforation or abscess without bleeding; K64.8 Other hemorrhoids; E13.9 Other specified diabetes mellitus without complications; E66.9 Obesity, unspecified; Z68.30 Body mass index [BMI] 30.0-30.9, adult
CPT/HCPCS: 45385; 82948; 88305; J2003; J2704; J7120